=== PATIENT | male | born 1935 | race Caucasian/White ===

== ENCOUNTER 2025-04-04 09:40 | Outpatient (CLI) | payer MEDICARE, SELFPAY ==
--- NOTE | 2025-04-04 10:11 | ECG_ITS ---
Test Date: 2025-04-04 10:28:19 Measurements Intervals [place] Rate: 62 P: 1 KS: 208 QRS: -28 QRSD: 106 T: 12 QT: 430 QTc: 440 Interpretive Statements SINUS RHYTHM WITH FIRST DEGREE AV BLOCK WITH OCCASIONAL VENTRICULAR PREMATURE COMPLEXES LOW QRS VOLTAGE IN PRECORDIAL LEADS POOR R WAVE PROGRESSION LEFT VENTRICULAR HYPERTROPHY WITH ST-T CHANGE INFERIOR INFARCT, AGE INDETERMINATE BASELINE ARTIFACT- I, II, III, AVR, AVL ABNORMAL ECG No previous ECG available for comparison Electronically Signed On 04-04-2025 10:32:23 CDT by Manuel Wilkins D.O.
--- OUTSIDE RECORDS SUMMARY | 2025-04-04 10:30 | XMS_ITS | Clinical Summary ---
Author Organization [facility] [place] [facility] Address [address] [place] [address] Care Team Providers Care Sand Molder Name Role Phone Justin Samuel MD Primary Care Provider + Allergies Active Allergy Reactions Criticality Noted Date Comments Wasp Venom Swelling High 11/30/2020 Medications doxycycline hyclate (VIBRAMYCIN) 50 mg capsule Take by mouth daily 0 Active finasteride (PROSCAR) 5 mg tablet Take 1 tablet (5 mg total) by mouth daily 0 Active fluorouraciL (EFUDEX) 5 % cream APPLY TO SCALP,FACE, AND ARMS ONCE DAILY AND ON HANDS THREE TIMES DAILY 9 Active ipratropium-albu teroL (DUO-NEB) 0.5-2.5 mg/3 mL nebulizer solution Inhale 3 mL every 4 (four) hours as needed 8 Active ketoconazole (NIZORAL) 2 % shampoo 0 Active metroNIDAZOLE (METROGEL) 0.75 % gel Apply topically 2 (two) times a day 9 Active quinapriL (ACCUPRIL) 20 mg tablet Take 2 tablets (40 mg total) by mouth daily 0 Active sildenafiL (VIAGRA) 100 mg tablet TAKE ONE TABLET BY MOUTH DAILY NEEDED ONE HOUR PRIOR TO PLANNED SEXUAL ACTIVITY. 0 Active tamsulosin (FLOMAX) 0.4 mg extended release capsule TAKE 1 CAPSULE BY MOUTH EVERY DAY IN THE EVENING 0 Active zinc 50 mg tablet Take 1 tablet by mouth daily 8 Active terbinafine (LamISIL) 1 % cream APPLY TO FEET AT BEDTIME TO CONTROL FUNGUS 0 Active triamcinolone (NASACORT) 55 mcg nasal inhalerIndicatio ns:Nasal obstruction Administer 2 sprays into each nostril daily 16.9 mL 3 1 Active atorvastatin (LIPITOR) 40 mg tablet Take 1 tablet (40 mg total) by mouth nightly 2 Active aspirin 81 mg enteric coated tablet Take 1 tablet (81 mg total) by mouth daily Active gabapentin (NEURONTIN) 300 mg capsule TAKE 1 CAPSULE (300 MG TOTAL) BY MOUTH 2 TIMES A DAY. 60 capsule 5 3 Active Additional Information Patient not taking.Reported on 12/07/2024 lisinopriL (PRINIVIL,ZESTRI L) 5 mg tablet Take 1 tablet (5 mg total) by mouth daily 4 Active lisinopriL (PRINIVIL,ZESTRI L) 10 mg tablet Take 1 tablet (10 mg total) by mouth daily 4 Active meloxicam (MOBIC) 7.5 mg tablet Take 1 tablet (7.5 mg total) by mouth daily 3 Active traMADoL (ULTRAM) 50 mg tablet Take 1 tablet (50 mg total) by mouth every 6 (six) hours as needed 3 Active econazole nitrate 1 % cream APPLY TO FEET AT BEDTIME TO CONTROL FUNGUS 4 Active Active Problems Problem Noted Date Diagnosed Date DDD (degenerative disc disease), lumbar 10/15/19 23 Overview (12/11/2023): Last Assessment & Plan: The patient received a referral to ambulatory physical therapy where he will work on strengthening and stretching. It band syndrome, right 10/14/2022 Overview (12/11/2023): Last Assessment & Plan: The patient received a referral to ambulatory physical therapy where he will work on strengthening and stretching. Primary osteoarthritis of right hip 10/14/2022 Overview (12/11/2023): Last Assessment & Plan: We discussed the risks, benefits, and alternatives. The only thing proven to slow the progression of osteoarthritis is weight loss. Every pound lost relieves 4 to 6 pounds of stress across the hip. We discussed formal physical therapy to help with flexibility, mobility, and strength. We discussed TENS units. Nonsteroidal anti-inflammatories as well as Tylenol and pain medication and their side effects. We discussed steroid injection. We discussed eventual total hip arthroplasty. Recommendation at this time is to continue with his exercises. We'll see him back as needed. Tenosynovitis of hand 04/03/2022 Overview (12/11/2023): Last Assessment & Plan: Not quite to trigger finger yet. We offered injection versus Medrol Dosepak. Patient would like to try Medrol Dosepak first. We offered formal physical therapy but would like to just work on exercises at home. Follow-up if no significant improvement. Would like to avoid nonsteroidal anti-inflammatories as his is in the hospital with GI bleed from too many anti-inflammatories. 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 Hospital records were reviewed. He was started on aspirin therapy and lipid treatment was increased. He does have follow-up outpatient plans for cardiology evaluation to include consideration of echocardiogram extended cardiac monitoring to exclude atrial fibrillation or any cardiovascular risks that would necessitate treatment beyond antiplatelet therapy for continued cerebrovascular prophylaxis. TIA (transient ischemic attack) 06/15/2021 Nasal obstruction 06/05/2021 Left ear pain 06/05/2021 Dizziness and giddiness 06/05/2021 Chronic sphenoidal sinusitis 06/05/2021 Medication monitoring encounter 07/03/2020 Assessment & Plan (07/03/2020 9:47 AM GRANITE POLISHER): Patient has had recent CBC, AST, and ALT for medication monitoring of potential neutropenia and liver dysfunction associated with continued CellCept usage. These have been found to be normal. Erectile dysfunction 01/06/2020 Rosacea 11/25/2017 Overview (12/11/2023): Last Assessment & Plan: Sees dermatology routinely, with control of symptoms using metronidazole gel. No treatment change. Myasthenia gravis 08/08/2016 Overview (12/11/2023): Last Assessment & Plan: Patient continues on pyridostigmine and CellCept at this time with good tolerability and no symptomatic issues with his myasthenia. Recent laboratory has been reviewed. I have renewed both pyridostigmine and CellCept at present dosing. He will follow-up in neurology clinic in a year. Last Assessment & Plan: Patient continues to see Dr. Meza regularly for management, with good control of symptoms. No treatment change. Assessment & Plan (06/26/2021 11:32 AM GRANITE POLISHER): Patient continues on pyridostigmine and CellCept at this time with good tolerability and no symptomatic issues with his myasthenia. Recent laboratory has been reviewed. I have renewed both pyridostigmine and CellCept at present dosing. He will follow-up in neurology clinic in a year. Assessment & Plan (07/03/2020 9:47 AM GRANITE POLISHER): Patient is a former patient of [facility] previously followed for myasthenia gravis. Medical records from [facility] have been requested without successful recovery. They will be requested again today. Since last being seen a [facility], he has continued on a combination of CellCept and pyridostigmine with no new interval neurologic problems. He exhibits a normal neurological examination today. He has had recent laboratory assessment including CBC, AST, and ALT which has been reviewed and found to be normal. I have renewed his CellCept and pyridostigmine at previous prescribed dosing. I will see him back in the office in 1 year. BPH with obstruction/lower urinary tract symptom s 08/08/2016 Overview (12/11/2023): Last Assessment & Plan: Stable on current dosing of tamsulosin and finasteride. Continue current treatment. Essential hypertension 08/08/2016 Overview (12/11/2023): Last Assessment & Plan: Well-controlled at present, on current dosing of quinapril. No treatment change, check routine lab work today. Hypercholesteremia 08/08/2016 Overview (12/11/2023): Last Assessment & Plan: On no medications at this time, check fasting lipid profile. 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 Never 06/28/2022 Q2: How many drinks containi ng alcohol do you have on a typical day when you are drinking? Patient does not drink Q3: How often do you have si x or more drinks on one occasion? Never 06/28/2022 Sex and Gender Information Value Date Recorded Sex Assigned at Not on file Legal Sex Male 9:18 AM GRANITE POLISHER Gender Identity Not on file Sexual Orientation Not on file Obstetrics History Last Filed Vital Signs Vital Sign Reading Time Taken Comments Blood Pressure 118/66 12/07/2024 10:29 AM CDT Pulse 76 12/07/2024 10:29 AM CDT Temperature 36.7 C (98 F) 11/25/2022 10:00 AM CDT Respiratory Rate 19 11/25/2022 10:00 AM CDT Oxygen Saturation 95% 12/11/2023 1:27 PM CDT Inhaled Oxygen Concentration - - Weight 83 kg (183 lb) 12/07/2024 10:29 AM CDT Height 170.2 cm (5' 7) 12/07/2024 10:29 AM CDT Body Mass Index 28.66 12/07/2024 10:29 AM CDT Plan of Treatment Health Maintenance Due Date Last Done Comments Depression Screening 1935 Fall Risk Assessment 1935 Hepatitis B Screening 1953 Well Visit 65+ 2002 DTaP/Tdap/Td Vaccine (1 - Tdap) 01/11/2023 Covid-19 Vaccine (2 - 2023-2 5 season) 2024 06/08/2021 Zoster Vaccine (2 of 2) 05/27/2024 04/01/2024 Influenza Vaccine (#1) 2025 , 05/08/2020, 05/05/2019, Additional history exists Pneumococcal vaccine 65+ Completed 06/11/2022, 11/09 Insurance [facility] MEDICARE ADVANTAGE [facility] MEDICARE ADVANTAGE [facility] MEDICARE ADVANTAGE Care Teams Sand Molder Relationship Specialty Start Date End Date Justin Samuel MD [address] [address] PCP - General Family Medicine 11/25/22
[2025-04-04 10:41] LABS: Hematocrit 38.5 % (42.0-52.0); Hemoglobin 13.1 g/dL (14.0-18.0); Immature Granulocyte Percent A 0.2 % (0-0.5); Lymphocytes Absolute Auto 1.26 K/mm3 (0.9-3.2); Mean Corpuscular HGB Conc 34.0 g/dl (32-36); Mean Corpuscular Hemoglobin 31.0 pg (26-34); Mean Corpuscular Volume 91.2 fl (80-100); Nucleated Red Blood Cells Absolute Auto 0.000 K/mm3 (0.0-0.012); Nucleated Red Blood Cells Perc 0.0 % (0.0-0.2); Platelet Count Result 182 k/mm3 (150-375); Red Blood Count 4.22 M/mm3 (4.6-6.20); White Blood Count 4.9 K/mm3 (4.5-10.0)
[2025-04-04 10:59] LABS: INR 1.0; Partial Thromboplastin Time 37.6 Seconds (22.3-36.8); Prothrombin Time 13.5 Seconds (11.1-14.7)
[2025-04-04 11:01] LABS: Anion Gap 5 mmol/L (4-12); Blood Urea Nitrogen 14 mg/dL (9-20); Calcium 8.9 mg/dL (8.4-10.2); Carbon Dioxide 28 mmol/L (22-30); Chloride 104 mmol/L (98-107); Estimated Glomerular Filt Rate > 60; Glucose 110 mg/dL (65-110); Potassium 4.3 mmol/L (3.4-5.0); Sodium 137 mmol/L (137-145)
== END 2025-04-04 09:41 | disposition home or self-care (01) ==
LOC: ANHSURGERY 09:48
PROVIDERS: PCP Family Medicine Sports Medicine; Visit Provider Urology
DX: E78.5 Hyperlipidemia, unspecified (principal); I10 Essential (primary) hypertension; R31.0 Gross hematuria
CPT/HCPCS: 36415; 80048; 85025; 85610; 85730; 87086; 93005

== ENCOUNTER 2025-04-12 01:12 | Day surgery (SDC) | payer MEDICARE, SELFPAY ==
[2025-04-01 14:33] VITALS: BMI 27.2
--- NOTE | 2025-04-01 14:49 | PC.NURSE ---
Report to the Outpatient Waiting Room, entrance under the green pavilion located off [facility], at time ___11:30am____ on date __04/12/25 . Planned Procedure Time: _1:30pm .? Time changes happen often and if your time is changed the preop area will call you the afternoon before. - You and your visitor will be asked to self-screen and do not enter if you have any COVID symptoms. Please call surgeon if you need to reschedule. - A mask is optional within the hospital at this time. Patients may have clear liquids (water, carbonated beverages, clear teas, apple juice) until 3 hours prior to surgery with a maximum of 20 ounces. - No food from midnight until time of surgery and no smoking, or chewing tobacco (or any form of nicotine). No chewing gum, candy or mints. (10:30am) Take only the following medications with a SIP of water on the morning of surgery: NONE DO NOT STOP ANY OF YOUR OTHER PRESCRIPTION MEDICATIONS PRIOR TO SURGERY EXCEPT THE FOLLOWING Hold all vitamins and supplements for 3 days per anesthesiologist. Date of last dose is 04/07/25 Medications to discontinue per physician NONE Date to take last dose____NONE Please no make-up, nail vincentian, hairspray, perfume, deodorant, or body powder the day of surgery.? No jewelry (including any body piercings) or valuables the day of surgery, leave them at home.? Please take a shower or bath the night before, or the morning of, surgery with an antibacterial soap.? Wear comfortable, loose fitting clothing.? Bring overnight bag - Jewelry must be removed prior to entering the operating room.? Rings and piercings that are not removed may be cut off. - The hospital will not accept responsibility for valuables.? - Please leave all valuables, including medications, at home the day of surgery. If you are going home after surgery, a licensed local company truck driver must drive you home.? - NO public transportation without another adult if you receive anesthesia. - We recommend that an adult stay with you for 24 hours following discharge. - We also recommend that you do not drive, make important decision, drink alcoholic beverages, or take any drugs that were not prescribed by your health care provider for at least 24 hours after your discharge time. Follow any additional instructions given to you from your surgeon. Telephone instructions given to __Patient and asked if any additional questions and then verbalized understanding. Patient advised to call surgeon office or pre surgery nurse liaison [phone] if any additional questions.
[2025-04-12] VITALS (11 sets, daily range): BP systolic 120–158; BP diastolic 52–79; PULSE 53–70; RESP 12–15; TEMP 36.4–36.6; O2SAT 97–99; BMI 28.4
--- NOTE | ~2025-04-12 | XR_ITS ---
EXAM: XR fluoroscopy no charge - 04/12/2025 13:50 CDT History: 89 years old Male with LEFT STENT/RETRO Fluoroscopy time: 1.6 seconds FINDINGS/ IMPRESSION: Multiple fluoroscopic images of pelvis and lower abdomen. Reviewed, dictated and finalized at location N.
--- OUTSIDE RECORDS SUMMARY | 2025-04-12 01:15 | XMS_ITS | Clinical Summary ---
Author Organization [facility] [place] [facility] Address [address] [place] [address] Care Team Providers Care Radio Repairer Domestic Name Role Phone Justin Samuel MD Primary [...] 06/26/2021 Assessment & Plan (06/26/2021 11:34 AM ASSURANCE SENIOR): Patient was recently hospitalized in [facility] with transient ataxia and was found to [...] 07/03/2020 Assessment & Plan (07/03/2020 9:47 AM ASSURANCE SENIOR): Patient has had recent CBC, AST, and [...] change. Assessment & Plan (06/26/2021 11:32 AM ASSURANCE SENIOR): Patient continues on pyridostigmine and CellCept at this time with good tolerability and no symptomatic issues with his myasthenia. Recent laboratory has been reviewed. I have renewed both pyridostigmine and CellCept at present dosing. He will follow-up in neurology clinic in a year. Assessment & Plan (07/03/2020 9:47 AM ASSURANCE SENIOR): Patient is a former patient of [facility] previously followed for myasthenia gravis. Medical records from [facility] have been requested without successful recovery. They will be requested again today. Since last being seen a [facility], he has continued on a combination [...] on file Legal Sex Male 9:18 AM ASSURANCE SENIOR Gender Identity Not on file Sexual Orientation [...] Pneumococcal vaccine 65+ Completed 06/11/2022, 11/09 Insurance [facility] MEDICARE ADVANTAGE * Guarantor: Gatito Moura Account Type Relation to Patient Date of Phone Billing Address Personal/Family Self 1935 [address] [place] [address] [facility] MEDICARE ADVANTAGE [facility] MEDIC[facility] ADVANTAGE Care Teams Radio Repairer Domestic Relationship Specialty Start Date End Date Justin Samuel MD [address] [address] PCP - General Family Medicine 11/25/22
--- OUTSIDE RECORDS SUMMARY | 2025-04-12 01:15 | XMS_ITS | Clinical Summary ---
Author Organization [facility] Address [facility] [place] [address] Care Team Providers Care Sustainability Specialist Name Role Phone Paz Kessler MD Unavailable [phone] Lillian Zepeda MD Unavailable [phone] Reed Meza MD Unavailable Unavailable Cornell Elizalde MD Unavailable Justin Samuel MD Primary Care Provider [phone] Allergies Active Allergy Reactions Criticality Noted Date Comments Wasp Venom Swelling High 11/30/2020 Medications Zinc 50 MG Tab Take 1 tablet by mouth daily. 04/27/20 18 Active ketoconazole 2 % shampoo APPLY TO AFFECTED AREA TWICE PER WEEK NEEDED FOR ITCH 3 09/22/19 19 Active fluorouracil 5 % cream APPLY TO SCALP,FACE, AND ARMS ONCE DAILY AND ON HANDS THREE TIMES DAILY 05/13/20 19 Active aspirin EC 81 MG tablet Take 1 tablet (81 mg total) by mouth daily. Active sildenafil (VIAGRA) 100 MG tabletIndicatio ns:Erectile dysfunction, unspecified erectile dysfunction type TAKE ONE TABLET BY MOUTH DAILY NEEDED ONE HOUR PRIOR TO PLANNED SEXUAL ACTIVITY. 10 tablet 2 03/03/20 23 Active econazole nitrate (SPECTAZOLE) 1 % cream APPLY TO FEET AT BEDTIME TO CONTROL FUNGUS 05/12/20 24 Active lisinopril (PRINIVIL) 5 MG tablet TAKE 1 TABLET (5 MG TOTAL) BY MOUTH DAILY. 90 tablet 3 10/29/19 25 Active tamsulosin (FLOMAX) 0.4 MG CapIndications: Benign prostatic hyperplasia without lower urinary tract symptoms TAKE 1 CAPSULE BY MOUTH TWICE A DAY 180 capsule 1 12/08/19 25 Active finasteride (PROSCAR) 5 MG tabletIndicatio ns:Hypercholest eremia TAKE 1 TABLET (5 MG TOTAL) BY MOUTH DAILY. 90 tablet 1 01/18/20 25 Active atorvastatin (LIPITOR) 40 MG tabletIndicatio ns:Hypercholest eremia TAKE 1 TABLET BY MOUTH EVERYDAY AT BEDTIME 90 tablet 03/28/20 25 Active atorvastatin (LIPITOR) 40 MG tabletIndicatio ns:Hypercholest eremia TAKE 1 TABLET BY MOUTH EVERYDAY AT BEDTIME 90 tablet 1 08/09/20 24 025 Discontinued Active Problems Problem Noted Date Diagnosed Date Primary osteoarthritis of right hip 10/14/2022 Overview (03/24/2024): Last Assessment & Plan: We discussed the [...] exercises. We'll see him back as needed. Assessment & Plan (12/16/2022 11:21 AM CDT): We discussed the risks, benefits, and alternatives. [...] exercises. We'll see him back as needed. Assessment & Plan (10/14/2022 12:06 PM MACHINIST MATE): We discussed the risks, benefits, and alternatives. [...] injection. We discussed eventual total hip arthroplasty. The patient received a referral to ambulatory physical therapy where he will work on strengthening and stretching. I prescribed Meloxicam and Prednisosne. It band syndrome, right 10/14/2022 Overview (03/24/2024): Last Assessment & Plan: The patient received a referral to ambulatory physical therapy where he will work on strengthening and stretching. Assessment & Plan (10/14/2022 12:06 PM MACHINIST MATE): The patient received a referral to ambulatory physical therapy where he will work on strengthening and stretching. DDD (degenerative disc disease), lumbar 10/15/19 Overview (03/24/2024): Last Assessment & Plan: The patient received a referral to ambulatory physical therapy where he will work on strengthening and stretching. Assessment & Plan (10/14/2022 12:06 PM MACHINIST MATE): The patient received a referral to ambulatory physical therapy where he will work on strengthening and stretching. Tenosynovitis of hand 04/03/2022 Assessment & Plan (04/03/2022 6:49 PM CDT): Not quite to trigger finger yet. We offered injection versus Medrol Dosepak. Patient would like to try Medrol Dosepak first. We offered formal physical therapy but would like to just work on exercises at home. Follow-up if no significant improvement. Would like to avoid nonsteroidal anti-inflammatories as his is in the hospital with GI bleed from too many anti-inflammatories. TIA (transient ischemic attack) 06/15/2021 Erectile dysfunction 01/06/2020 Essential hypertension 08/08/2016 Overview (03/24/2024): Last Assessment & Plan: Well-controlled at present, on current dosing of quinapril. No treatment change, check routine lab work today. Assessment & Plan (12/09/2018 6:25 PM CDT): Well-controlled at present, on current dosing of quinapril. No treatment change, check routine lab work today. Hypercholesteremia 08/08/2016 Overview (03/24/2024): Last Assessment & Plan: On no medications at this time, check fasting lipid profile. Assessment & Plan (12/09/2018 6:27 PM CDT): On no medications at this time, check fasting lipid profile. BPH with obstruction/lower urinary tract symptom s 08/08/2016 Overview (03/24/2024): Last Assessment & Plan: Stable on current dosing of tamsulosin and finasteride. Continue current treatment. Assessment & Plan (12/09/2018 6:26 PM CDT): Stable on current dosing of tamsulosin and finasteride. Continue current treatment. 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 Will provide patient contact information for ENT and sleep office, he can discuss possibility of balloon sinus plasty. Right elbow pain 04/27/2018 05/05/2019 Rosacea 11/25/2017 12/07/2024 Overview (03/24/2024): Last Assessment & Plan: Sees dermatology routinely, with control of symptoms using metronidazole gel. No treatment change. Assessment & Plan (12/09/2018 6:27 PM CDT): Sees dermatology routinely, with control of symptoms using metronidazole gel. No treatment change. Anemia, mild 12/09/2016 09/30/2022 Overview (11/23/2018): Transitioned From: Low hemoglobin Assessment & Plan (12/09/2018 6:27 PM CDT): Check CBC. Class 1 obesity due to exces s calories with serious comorbidity and body mass index (BMI) of 30.0 to 30.9 in adult 08/09/2016 12/07/2024 Overview (11/23/2018): Transitioned From: Obesity Assessment & Plan (10/14/2022 12:04 PM MACHINIST MATE): We discussed the adverse effects of weight on osteoarthritis. For every 1 pound loss, 4 to 6 pounds of stress is relieved from the knee, slightly more at the ankle and slightly less at the hip. We discussed low carbohydrate diet to help with weight loss. 80% of weight loss is through diet. Myasthenia gravis ([facility]) 08/08/2016 12/07/2024 Overview (09/30/2022): Last Assessment & Plan: Patient continues on pyridostigmine and CellCept at this time with good tolerability and no symptomatic issues with his myasthenia. Recent laboratory has been reviewed. I have renewed both pyridostigmine and CellCept at present dosing. He will follow-up in neurology clinic in a year. Assessment & Plan (12/09/2018 6:24 PM CDT): Patient continues to see Dr. Meza regularly for management, with good control of symptoms. No treatment change. Medication management 11/20/20152022 Overview (11/23/2018): Transitioned From: Taking multiple medications for chronic disease Assessment & Plan (12/09/2018 6:28 PM CDT): Checking routine labs today (see orders) for ongoing medication monitoring. Encounters Date Type Department Care Team Description 04/04/2025 Telephone [facility], [address] [address] Hedy Ordaz MD Information ([facility] Pre-Admission Testing Depart) 03/23/2025 Scan [employer] HEALTH INFO SRVCS Scanned, [facility] 03/21/2025 9:47 AM CDT - 03/21/2025 11:59 PM CDT Hospital [place] [address] [place] [address] Loco Lai MD Discharge Disposition: Home or Self Care (Routine Discharge) 03/21/2025 Travel 03/02/2025 Scan [facility] HEALTH INFO SRVCS Scanned, [facility] from Last 3 Months Immunizations Immunization Administration Dates Next Due Arexvy Respiratory Syncytial Virus (RSV, adjuvanted) 0.5 mL, PF 04/01/2024 Fluzone High Dose (IIV, triv alent, 0.5mL) 06/10/2024 Fluzone High Dose - >Age 65 (Prefilled Syringe) 06/11/2022,05/21/2021,05/08/2020,2018,04/27/2018,06/11/2017,06/19/2015 Influenza (Generic) 05/11/2013 Influenza Adult (Generic) 04/27/2018,08/2016,06/19/2015,2013 PFIZER COVID-19 (ORIGINAL FORMULATION, PURPLE CAP) mRNA, LNP-S, PF, 30 MCG/0.3 ML DOSE 06/08/2021 Pneumococcal (Pneumovax 23) 06/11/2022 Pneumococcal (Prevnar 13) 11/25/2017 Shingrix 04/01/2024 Td (Tenivac) preservative free 01/10/2023 Td, Adsorbed, Preservative F ree, Adult Use, Lf Unspecified 01/10/2023 Family History Medical History Relation Comments Heart Attack Father Heart Disease Father Hypertension Father None Father Parkinson's Disease Father Cancer Mother Relation Status Comments Father Maternal Grandfather Maternal Grandmother Mother Paternal Grandfather Paternal Grandmother Social History Tobacco Use Types Packs/Day Years Used Date Smoking Tobacco: Never Passive Smoke Exposure: Never Smokeless Tobacco: Never Tobacco Cessation:Counseling Given: No Comments:Never Smoked Alcohol Use Standard Drinks/Week Comments Yes 5 (1 standard drink = 0.6 oz pur e alcohol) Rarely PHQ-2 Answer Date Recorded Patient Health Questionnaire-2 Score 0 12/07/2024 Sex and Gender Information Value Date Recorded Sex Assigned at Male 12/07/2024 1:44 PM CDT Legal Sex Male 8:53 AM MACHINIST MATE Gender Identity Male 09/30/2022 8:59 AM MACHINIST MATE Sexual Orientation Straight 09/30/2022 8: 59 AM MACHINIST MATE Last Filed Vital Signs Vital Sign Reading Time Taken Comments Blood Pressure 94/48 12/07/2024 1:43 PM CDT Pulse 78 12/07/2024 1:43 PM CDT Temperature 36.7 C (98.1 F) 11/29/2024 11:02 AM CDT Respiratory Rate 16 12/07/2024 1:43 PM CDT Oxygen Saturation 99% 12/07/2024 1:43 PM CDT Inhaled Oxygen Concentration - - Weight 82.6 kg (182 lb) 12/07/2024 1:43 PM CDT Height 170.2 cm (5' 7) 12/07/2024 1:43 PM CDT Body Mass Index 28.51 12/07/2024 1:43 PM CDT Plan of Treatment Upcoming Encounters Date Type Department Care Team (Late st Contact Info) Description 06/14/2025 1:40 PM MACHINIST MATE Office Visit [facility] Internal Medicine [address] [phone] Justin Samuel MD [address] [facility] [address] [place] [phone] 10/21/2025 1:00 PM CDT Office Visit [facility] [phone] Hedy Ordaz MD [facility] [address] [place] [phone] Health Maintenance Due Date Last Done Comments Annual Medicare Wellness Visit 2002 DTaP, Tdap and Td Vaccines ( 1 - Tdap) 01/11/2023 01/10/2023, 01/10/2023 Zoster Vaccines (2 of 2) 05/27/2024 04/01/2024 COVID-19 Vaccine (3 - 2024-2 6 season) 2025 06/12/2022, 06/08/2021 Pneumococcal Vaccine: 50+ Years Completed 06/11/2022, 11/25/2017 RSV Immunization or 60+ Years Completed 04/01/2024 PHQ-2 (Physician [facility]) Completed 12/07/2024 Meningococcal B Vaccine Aged Out No l onger eligible based on patient's age to complete this topic Meningococcal Vaccine Aged Out No rufino lydia eligible based on patient's age to complete this topic RSV Immunizations Under 20 Months Aged Out No longer eligible b ased on patient's age to complete this topic Procedures Procedure Name Priority Date/Time Associated Diagnosis Comments CT ABD+PEL WWO CON Routine 03/21/2025 10 :27 AM CDT Gross hematuria CREATININE W/GFR Routine 03/21/2025 10:1 9 AM CDT from Last 3 Months Results * CT ABD+PEL WWO CON (03/21/2025 10:27 AM CDT) Anatomical Region Laterality Modality Abdomen Computed Tomogra phy 03/23/2025 7:46 AM CDT Impressions 03/23/2025 7:54 AM CDT IMPRESSION: 1. NO EVIDENCE OF URETERAL STONE OR HYDRONEPHROSIS ON EITHER SIDE. NO EVIDENCE OF FOCAL RENAL MASS LESION. NO DEFINITE ABNORMALITY NOTED INVOLVING THE URINARY BLADDER. SOURCE OF HEMATURIA IS NOT DEFINITELY DEMONSTRATED ON THIS STUDY. IF HEMATURIA IS PERSISTENT FURTHER EVALUATION MAY BE WARRANTED. 2. NONSPECIFIC PROSTATOMEGALY. 3. NO ACUTE INFLAMMATORY CHANGE, ABSCESS OR ASCITES. 4. NO EVIDENCE OF MECHANICAL BOWEL OBSTRUCTION OR PERFORATION. 5. DIFFUSE ATHEROSCLEROTIC VASCULAR CALCIFICATION WITH NO EVIDENCE OF AAA. Signed: Marcial Asher MD Referred By: LOCO LAI Interpreted By: Marcial Asher MD, 03/23/2025 7:46 AM Narrative 03/23/2025 7:54 AM CDT [facility] [address] [place] [address] PATIENT NAME: LIAN MOURA EXAM: CT abdomen/pelvis with and without contrast DATE OF EXAM: 03/21/2025 COMPARISON EXAM: None INDICATION: Hematuria TECHNIQUE: Initial axial images obtained from level of the xiphoid process pubic symphysis without contrast. Images then repeated with intravenous injection of 75 mL Isovue 370 contrast during both arterial and delayed phase. Sagittal and coronal reconstruction. Low-dose CT technique was utilized. FINDINGS: CT ABDOMEN: Visualized portions of the lung bases demonstrate no acute abnormality. No significant hiatal hernia. Incidental note is made of moderate coronary atherosclerotic calcification. The liver is normal in size. No significant focal intrahepatic lesion. No evidence of cholelithiasis or gallbladder wall thickening. No biliary duct dilatation. The spleen, pancreas, and the adrenal glands are unremarkable. The kidneys demonstrate no acute perirenal inflammatory stranding or fluid. There is no evidence of abnormal striated nephrogram. No significant renal calcifications are demonstrated. There is no evidence of ureteral stone or hydronephrosis on either side with no evidence of solid renal mass lesion is demonstrated. There is no acute inflammatory change, abscess or ascites. No evidence of mechanical bowel obstruction or perforation. No significant lymphadenopathy. Diffuse atherosclerotic vascular calcification involving abdominal aorta and its branches with no AAA. The IVC is unremarkable. CT PELVIS: There is nonspecific prostatomegaly. No other evidence of pelvic mass or adenopathy. Sigmoid diverticulosis. No acute inflammatory change, abscess or ascites. The enlarged prostate has mass effect on the base of the bladder. The urinary bladder is otherwise unremarkable. Procedure Note Marcial Asher MD - 03/23/2025 [facility] [address] [facility]. [place] [phone] PATIENT NAME: LIAN MOURA EXAM: CT abdomen/pelvis with and without contrast DATE OF EXAM: 03/21/2025 COMPARISON EXAM: None INDICATION: Hematuria TECHNIQUE: Initial axial images obtained from level of the xiphoid processpubic symphysis without contrast. Images then repeated with intravenousinjection of 75 mL Isovue 370 contrast during both arterial and delayedphase. Sagittal and coronal reconstruction. Low-dose CT technique wasutilized. FINDINGS: CT ABDOMEN: Visualized portions of the lung bases demonstrate no acuteabnormality. No significant hiatal hernia. Incidental note is made ofmoderate coronary atherosclerotic calcification. The liver is normal in size. No significant focal intrahepatic lesion.No evidence of cholelithiasis or gallbladder wall thickening. No biliaryduct dilatation. The spleen, pancreas, and the adrenal glands are unremarkable. The kidneys demonstrate no acute perirenal inflammatory stranding orfluid. There is no evidence of abnormal striated nephrogram. Nosignificant renal calcifications are demonstrated. There is no evidenceof ureteral stone or hydronephrosis on either side with no evidence ofsolid renal mass lesion is demonstrated. There is no acute inflammatory change, abscess or ascites. No evidence ofmechanical bowel obstruction or perforation. No significantlymphadenopathy. Diffuse atherosclerotic vascular calcification involvingabdominal aorta and its branches with no AAA. The IVC is unremarkable. CT PELVIS: There is nonspecific prostatomegaly. No other evidence ofpelvic mass or adenopathy. Sigmoid diverticulosis. No acute inflammatorychange, abscess or ascites. The enlarged prostate has mass effect on thebase of the bladder. The urinary bladder is otherwise unremarkable. IMPRESSION: 1. NO EVIDENCE OF URETERAL STONE OR HYDRONEPHROSIS ON EITHER SIDE. NOEVIDENCE OF FOCAL RENAL MASS LESION. NO DEFINITE ABNORMALITY NOTEDINVOLVING THE URINARY BLADDER. SOURCE OF HEMATURIA IS NOT DEFINITELYDEMONSTRATED ON THIS STUDY. IF HEMATURIA IS PERSISTENT FURTHER EVALUATIONMAY BE WARRANTED. 2. NONSPECIFIC PROSTATOMEGALY. 3. NO ACUTE INFLAMMATORY CHANGE, ABSCESS OR ASCITES. 4. NO EVIDENCE OF MECHANICAL BOWEL OBSTRUCTION OR PERFORATION. 5. DIFFUSE ATHEROSCLEROTIC VASCULAR CALCIFICATION WITH NO EVIDENCE OFAAA. Signed: Marcial Asher MD Referred By: LOCO LAI Interpreted By: Marcial Asher MD, 03/23/2025 7:46 AM Loco Lai MD CT Final Re sult * (ABNORMAL) CREATININE W/GFR (03/21/2025 10:19 AM CDT) CREATININE WHOLE BLOOD 1.1 0.6 - 1.3 mg/dL 03/21/2025 10:21 AM CDT [facility] GFR ESTIMATE 65(L) >90 ml/min/1.7 3 m2 03/21/2025 10:21 AM CDT [facility] 03/21/2025 10:1 9 AM CDT Loco Lai MD POINT OF CARE TEST ORDER MINDY Final Result Performing Organization Address City/State/[facility] Co de Phone Number [facility] [address] [place] [address], [place] [phone] from Last 3 Months Insurance Advance Directives * Full Code (Latest Code Status on File) Date Activated Date Inactivated Comments 06/15/2021 3:47 PM 06/16/2021 2:40 PM Care Teams Sustainability Specialist Relationship Specialty [place] [address] [place] [address] PCP - General FAMILY PRACTICE 11/14/21 Paz Kessler MD [address] [place] [address] Consulting Physician DERMATOLOGY 11/30/20 Lillian Zepeda MD [facility] [address] [place] [address] Consulting Physician ANESTHESIOLOGY PAIN MEDICINE 11/30/20 Reed Meza MD [facility] [address] [place] [address] Referring Physician Neurology Psychiatry 03/25/21 [place] [address] [place] [address] Consulting Physician OTOLARYNGOLOGY 03/25/21
--- NOTE | 2025-04-12 12:06 | WPDHPUPDATE1 ---
History and Physical Update Update Date/Time: 04/12/25 12:06 History and Physical has been reviewed, including an updated exam of the patient. There are NO changes in the patient's condition. Risks, benefits, and alternatives have been discussed and questions answered. Patient agrees to proceed with procedure. Proceed with cystoscopy, trans resection of bladder tumor, possible left retrograde, possible left stent placement
--- NOTE | 2025-04-12 12:09 | WPDANESEPPF ---
Anes - Initial Pre Proc Eval Procedure: Operation Date: 04/12/25 13:30 Proposed Procedures p Transurethral Resection Bladder Tumor, Left Retrograde Pyelogram, Possible Stent Placement - Loco Lai MD Date/Time: 04/12/25 12:09 Surgeon: Loco Lai MD Pre Op Diagnosis: gross hematuria Patient Data Age: 89 Gender: M Height: 1.7 m Weight: 79 kg Allergies Allergy/AdvReac Type Severity Reaction Status Date / Time wasp sting AdvReac Severe severe Uncoded 04/12/25 11:50 swelling Home Medications ?Medication ?Instructions ?Recorded ?Confirmed ?Type atorvastatin 40 mg tablet 40 mg PO QPM 04/01/25 04/01/25 History finasteride 5 mg tablet 5 mg PO .HS 04/01/25 04/01/25 History lisinopril 5 mg tablet 5 mg PO DAILY 04/01/25 04/12/25 History tamsulosin 0.4 mg capsule 0.4 mg PO BID 04/01/25 04/12/25 History zinc 50 mg tablet 50 mg PO DAILY 04/01/25 04/01/25 History Patient hx anesthesia problems: none Family hx anesthesia problems: none Results Review: All pre-operative results and documents have been reviewed as part of the pre-operative evaluation. [facility] Social History Social History Smoking status: Never smoker Second hand tobacco smoke exposure: No Alcohol intake: current Alcohol use details: 2 per month Substance use: never Living arrangements: with family Spiritual care concerns: No Anes - Eval Final PreProcedure Day of Procedure 04/12/25 12:09 Patient weight: normal Heart: regular rate and rhythm Lungs: clear to auscultation Airway: Mallampati scale class II Neurological: alert and oriented Last oral intake: >/= 8 hours ASA classification: III Emergent: no Anesthetic plan: proceed Anesthesia type and monitoring: general LMA and standard monitoring Results Review: All pre-operative results and documents have been reviewed as part of the pre-operative evaluation. Informed Consent: The patient's anesthetic plan and its attendant risks and benefits were discussed with the patient/family/POA. Questions were solicited and answers provided to the satisfaction of the patient/family/POA.
[2025-04-12] MEDS: LACTATED RINGERS 1,000 ML 30 ML IV CONT (12:50)
[2025-04-12] MEDS: ceFAZolin 2 GM in SODIUM CHLORIDE 0.9% IV 50 ML 100 ML IVPB (13:40)
[2025-04-12] MEDS: LIDOCAINE 2% GEL UROJET 10 ML PKG MUCOUS MEM (13:56)
--- NOTE | 2025-04-12 14:01 | S_PTH ---
PATIENT: Gatito Moura LOC: [facility] U#:[id number] AGE/SX: 89/M ROOM: RE04/12/[address]: Loco Lai, : 1935 BED: DIS: 04/12/2025 SPEC #: [id number] RECD: 04/13/25 07:48 STATUS: KARYNA KO #: [id number] FRANC: 04/12/25 14:[address]: Ming,Loco Shannon DEPT: [facility] Surgical RECD BY: Paola Pierce ENTERED: 04/13/25 07:48 SP TYPE: Surgical OTHR DR: Justin Samuel, Tissues: A - Bladder Biopsy B - Prostate Bx Procedures: Unstained Slides Hematoxylin and Eosin Stain Gross and Microscopic Level 4 Prostate Biopsy CK 20 F-35
--- NOTE | 2025-04-12 14:16 | P.OP_ITS ---
Procedure Note - Detailed Date of Procedure 04/12/25 Pre-op Diagnosis gross hematuria, bladder lesion Post-op Diagnosis Same Procedure Performed cystoscopy with transurethral resection of bladder tumor, fulguration of prostate, complex Calabrese catheter placement [address] Surgeon Loco Lai MD Anesthesia General Description of Procedure patient was taken to the operative suite and correctly identified. Once anesthesia was obtained he was placed in the dorsal lithotomy position and pr epped and draped usual sterile fashion. Twenty-two Nauruan scope was inserted the bladder. He does have some lateral lobe hypertrophy. Along the left lobe there is a protuberant portion of prostate that is apparently appears to obstruct the urethral channel. He also has a small median lobe. The bladder itself has 2+ trabeculation. There was an area of erythema and somewhat ulcerated mucosa just lateral to the left ureteral orifice. Using a 24 Nauruan resectoscope sheath we resected this area and fulgurated the base. We also resected that little portion of her tumor and prostate sent that separately. Using a rollerball the prostate was fulgurated. 2% viscous lidocaine was inserted into the urethra an [address] was placed with 10 cc in the balloon. He was taken recovery stable condition. Will trying get him home with a Calabrese catheter and have that removed in a day or 2. He will call for path results in 1 week. This completes dictation. Please send a copy of op note to my office Estimated Blood Loss 0 Drains Yes Packing No Pathology Yes Complications No immediate complications Condition Stable Disposition PACU
[2025-04-12] MEDS: oxyCODONE HCL (*CRX) 5 MG TAB IR PO (16:05)
== END 2025-04-12 16:50 | disposition home or self-care (01) ==
PROVIDERS: PCP Family Medicine Sports Medicine; Visit Provider Urology
PROC: 0TBB8ZZ Excision of Bladder, Via Natural or Artificial Opening Endoscopic (ICD-10-PCS; CPT 52234; principal; 2025-04-12 13:30)
DX: N30.91 Cystitis, unspecified with hematuria (principal); N40.1 Benign prostatic hyperplasia with lower urinary tract symptoms; R39.11 Hesitancy of micturition
CPT/HCPCS: 52234; 55899; 88305; 88342; 99199; J0690; A9270; G0416; J2003; J2405; J2704; J3010; J7120